=== PATIENT | male | born 1965 | race Caucasian/White ===

== ENCOUNTER 2018-12-10 13:31 | Emergency (ER) | payer SELFPAY ==
[~2018-12-10] VITALS: Ht 193 cm; Wt 105.6 kg
[2018-12-10] MEDS ORDERED: ZIPRASIDONE 20 MG INJ IM ONE ×2 (13:56→14:00)
[2018-12-10 14:04] LABS: BASOPHILS # (AUTO) 0.02 x10^3/uL (0-0.1); BASOPHILS % (AUTO) 0 % (0-1); EOSINOPHILS # (AUTO) 0.01 x10^3/uL (0-0.4); EOSINOPHILS % (AUTO) 0 % (1-7); LYMPHOCYTES # (AUTO) 1.55 x10^3/uL (1-3.4); LYMPHOCYTES % (AUTO) 16 % (22-44); MD NO; MEAN CORPUSCULAR HEMOGLOBIN 35.3 pg (27.5-34.5); MEAN CORPUSCULAR VOLUME 107.1 fL (81-97); MEAN PLATELET VOLUME 8.6 fL (7.4-10.4); MONOCYTES # (AUTO) 0.75 x10^3/uL (0.2-0.8); MONOCYTES % (AUTO) 8 % (2-9); NEUTROPHILS # (AUTO) 7.13 x10^3/uL (1.8-6.8); NEUTROPHILS % (AUTO) 75 % (42-75); PLATELET COUNT 237 x10^3/uL (130-400); RED CELL DISTRIBUTION WIDTH 13.8 % (9.4-14.8)
[2018-12-10 14:15] LABS: ANION GAP 8 mmol/L (5-15); CALCIUM 8.6 mg/dL (8.5-10.1); CHLORIDE 100 mmol/L (98-107); CREATININE 1.14 mg/dL (0.7-1.3)
[2018-12-10 14:22] LABS: SALICYLATE LEVEL 5.8 mg/dL (2.8-20.0)
[2018-12-10 14:49] VITALS: BP 159/95
[2018-12-10] MEDS ORDERED: POTASSIUM CHLORIDE 10% 40 MEQ/30 ML UDC PO ONE (15:00)
--- NOTE | 2018-12-10 15:20 | NUR ---
PATIENT STATES HE IS "FEELING A LITTLE BETTER" REVIEWED WITH PT THE IMPORTANCE OF TAKING HIS MEDICATIONS REGULARLY. ENCOURAGED PT TO CONTACT HIS PHYSCH DOCTOR AT [facility]. Patient/Caregiver given discharge instructions and they have confirmed that they understand the instructions. Patient ambulatory with steady gait.
== END 2018-12-10 15:23 | disposition home or self-care (01) ==
LOC: ED 15:20
DX: F20.89 Other schizophrenia (principal); Z72.9 Problem related to lifestyle, unspecified; F10.129 Alcohol abuse with intoxication, unspecified; E87.6 Hypokalemia; F32.9 Major depressive disorder, single episode, unspecified
CPT/HCPCS: 36415; 80048; 80307; 82040; 85025; 96372; 99284; J3486